=== PATIENT | female | born 2000 | race Caucasian/White ===

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

== ENCOUNTER 2022-01-16 15:18 | Emergency (ER) | payer OTHER ==
[2022-01-16 15:40] VITALS: TEMP 99
[2022-01-16 16:07] LABS: Appearance,Urine Clear (Clear); Bacteria,Urine Occasional /hpf; Bilirubin,Urine Negative (Negative); Blood,Urine Negative (Negative); Color,Urine Yellow; Glucose,Urine (UA) Negative (Negative); Hyaline Casts,Urine 1 /lpf (0-2); Ketones,Urine Trace (Negative); Leukocyte Esterase,Urine Small (Negative); Mucus,Urine Rare /hpf; Nitrite,Urine Negative (Negative); Protein,Urine Negative (Negative); RBC,Urine <1 /hpf (0-5); Specific Gravity,Urine 1.008 (1.001-1.035); Squamous Epithelial Cell,Urine 1 /hpf (0-4); Urobilinogen,Urine <2.0 mg/dL (<2.0); WBC,Urine 3 /hpf (0-5)
[2022-01-16] MEDS ORDERED: SODIUM CHLORIDE 0.9% 1,000 ML IV STA (17:00)
[2022-01-16] MEDS ORDERED: MORPHINE SULFATE 2 MG/ML SYRINGE IVP STA (17:00)
[2022-01-16] MEDS ORDERED: ONDANSETRON 4 MG/2 ML VIAL IVP STA (17:00)
[2022-01-16 17:30] LABS: Basophils # (A) 0.1 k/uL (0-0.2); Basophils % (A) 1 %; Eosinophils # (A) 0.4 k/uL (0-0.7); Eosinophils % (A) 4 %; HCT 42.7 % (34.0-46.0); HGB 14.3 gm/dL (11.4-16.0); Lymphocytes # (A) 2.5 k/uL (1.0-4.8); Lymphocytes % (A) 28 %; MCH 29.3 pg (25.0-35.0); MCHC 33.6 g/dL (31.0-37.0); MCV 87.4 fL (80.0-100.0); Mean Platelet Volume 7.5; Monocytes # (A) 0.8 k/uL (0-1.0); Monocytes % (A) 9 %; Neutrophils # (A) 5.1 k/uL (1.3-7.7); Neutrophils % (A) 57 %; Platelet Count 268 k/uL (150-450); RBC 4.89 m/uL (3.80-5.40); RDW 12.4 % (11.5-15.5)
[2022-01-16 17:42] LABS: ALT 17 U/L (4-34); AST 14 U/L (14-36); African American GFR (CKD) >90 (>60 ml/min/1.73 sqM); Albumin 4.6 g/dL (3.5-5.0); Alkaline Phosphatase 60 U/L (38-126); Anion Gap 9 mmol/L; Blood Urea Nitrogen 10 mg/dL (7-17); Calcium 9.6 mg/dL (8.4-10.2); Carbon Dioxide 20 mmol/L (22-30); Chloride 109 mmol/L (98-107); Glucose 75 mg/dL (74-99); Lipase 41 U/L (23-300); Non-African American GFR(CKD) >90 (>60 ml/min/1.73 sqM); Potassium 3.8 mmol/L (3.5-5.1); Sodium 138 mmol/L (137-145); Total Bilirubin 0.6 mg/dL (0.2-1.3); Total Protein 7.5 g/dL (6.3-8.2)
--- NOTE | 2022-01-16 17:48 | ED ---
General Adult HPI - General Chief complaint: Abdominal Pain Stated complaint: Adb pain/nausea/vomiting Time Seen by Provider: 01/16/22 16:34 Source: patient Mode of arrival: ambulatory Limitations: no limitations - History of Present Illness Initial comments: This 21-year-old female presents emergency Department with right lower quadrant pain 3 days. Patient states she began to have abdominal pain a few days ago and states it localized to right lower quadrant and began to worsen today. Patient states the pain is episodic in nature and seems to come and go, however today it didn't seem to go away. Patient denies taking any medication for the pain. She states moving around or crusting area does worsen the pain. She denies any radiation. She states her pain right now is currently 10/10 but states 3 days ago when it began it was tolerable and was about 2/10. Patient describes the pain as aching in nature. Patient states she did experience nausea throughout the last couple days and did vomit one time today prior to presenting to the emergency department. Patient denies being on her menstrual cycle at this time and states she was on the Depo shot up until a couple months ago where she bled almost daily and states she had an IUD placed on Wednesday, she states her last day of bleeding was 4 days ago. Patient states over the last couple days she has had a little bit of a decreased appetite, however she has still been eating and drinking plenty of fluids. Patient denies any fever, hemoptysis, hematochezia, change in bowel or bladder, headache, lightheadedness, dizziness, chest pain, shortness of breath. - Related Data Home Medications Medication Instructions Recorded Confirmed Cyproheptadine [Cyproheptadine HCl] 4 mg PO DAILY PRN 04/15/21 01/16/22 Ibuprofen [Motrin] 800 mg PO Q8H PRN 04/15/21 01/16/22 clonazePAM [KlonoPIN] 0.25 - 0.5 mg PO DAILY PRN 04/15/21 01/16/22 ondansetron HCL [Zofran] 4 mg PO Q8H PRN 04/15/21 01/16/22 Omeprazole Magnesium [PriLOSEC OTC] 20 mg PO DAILY PRN 01/16/22 01/16/22 buPROPion HCL [buPROPion HCL SR] 400 mg PO DAILY 01/16/22 01/16/22 Allergies Allergy/AdvReac Type Severity Reaction Status Date / Time No Known Allergies Allergy Verified 01/16/22 17:23 Review of Systems ROS Statement: Those systems with pertinent positive or pertinent negative responses have been documented in the HPI. ROS Other: All systems not noted in ROS Statement are negative. Past Medical History Past Medical History: No Reported History Additional Past Medical History / Comment(s): cyclic vomiting syndrome History of Any Multi-Drug Resistant Organisms: None Reported Past Surgical History: No Surgical Hx Reported Past Psychological History: Anxiety, Depression Smoking Status: Never smoker Past Alcohol Use History: Occasional Past Drug Use History: Marijuana General Exam Limitations: no limitations General appearance: alert, in no apparent distress Head exam: Present: atraumatic, normocephalic, normal inspection Eye exam: Present: normal appearance, PERRL, EOMI. Absent: scleral icterus, conjunctival injection, periorbital swelling Pupils: Present: normal accommodation ENT exam: Present: normal exam, mucous membranes moist Neck exam: Present: normal inspection, full ROM. Absent: tenderness, meningismus, lymphadenopathy Respiratory exam: Present: normal lung sounds bilaterally. Absent: respiratory distress, wheezes, rales, rhonchi, stridor, chest wall tenderness Cardiovascular Exam: Present: regular rate, normal rhythm, normal heart sounds. Absent: systolic murmur, diastolic murmur, rubs, gallop, clicks GI/Abdominal exam: Present: soft, tenderness (Right lower quadrant tenderness to palpation), normal bowel sounds. Absent: distended, guarding, rebound, rigid Extremities exam: Present: normal inspection, full ROM, normal capillary refill. Absent: tenderness, pedal edema, joint swelling, calf tenderness Back exam: Present: normal inspection, full ROM. Absent: CVA tenderness (R), CVA tenderness (L), paraspinal tenderness, vertebral tenderness Neurological exam: Present: alert, oriented X3, CN II-XII intact Psychiatric exam: Present: normal affect, normal mood Skin exam: Present: warm, dry, intact, normal color. Absent: rash Course Vital Signs 01/16/22 01/16/22 01/16/22 15:37 18:00 19:39 Temperature 99.0 F Pulse Rate 98 78 86 Respiratory 18 18 16 Rate Blood Pressure 124/71 122/76 121/74 O2 Sat by Pulse 99 99 100 Oximetry Medical Decision Making - Medical Decision Making This 21-year-old female presents emergency Department with episodic right lower quadrant pain 3 days, worsening today. Patient was that blood cells 9.0, hemoglobin 14.3, chemistry with chloride 109 and carbon dioxide 20. Urine trace ketones, small leukocyte esterase and occasional bacteria. Lactic acid 1.3 Urine hCG not detected. 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 No evidence of bowel obstruction. Additional narrowing of the left renal vein also likely secondary to the aorta and superior mesenteric artery can be seen in setting of nutcracker syndrome, correlate with urinalysis for hematuria. Transvaginal ultrasound without any evidence for acute pelvic process. Appropriate color Doppler flow and spectra waveforms to the ovaries. IUD in appropriate position. Multiple small follicles seen on right ovary. Large follicular cyst seen on le ft ovary. Patient sent in stable condition and was instructed to follow up with her primary care provider and CHIEF MECHANICAL ENGINEER in the next 48-72 hours. Patient was given pain and nausea medication in the emergency department and stated it significantly decreased her pain. Prior to discharge patient stated her pain was 0/10 and very dull in nature. I did review all findings with my attending, Dr. Benavides who suggested patient follow up with her primary care provider early next week. Strict return precautions were discussed with patient. Patient verbally agreed to plan and stated she will return if her pain returned or if any new or concerning symptoms arose. Patient sent home in stable condition. C ase discussed in detail with my attending, . - Lab Data Result diagrams: 01/16/22 17:06 01/16/22 17:06 Lab Results 01/16/22 01/16/22 01/16/22 Range/Units 15:54 15:54 17:06 WBC 9.0 (4.0-11.0) k/uL RBC 4.89 (3.80-5.40) m/uL Hgb 14.3 (11.4-16.0) gm/dL Hct 42.7 (34.0-46.0) % MCV 87.4 (80.0-100.0) fL MCH 29.3 (25.0-35.0) pg MCHC 33.6 (31.0-37.0) g/dL RDW 12.4 (11.5-15.5) % Plt Count 268 (150-450) k/uL MPV 7.5 Neutrophils % 57 % Lymphocytes % 28 % Monocytes % 9 % Eosinophils % 4 % Basophils % 1 % Neutrophils # 5.1 (1.3-7.7) k/uL Lymphocytes # 2.5 (1.0-4.8) k/uL Monocytes # 0.8 (0-1.0) k/uL Eosinophils # 0.4 (0-0.7) k/uL Basophils # 0.1 (0-0.2) k/uL Sodium (137-145) mmol/L Potassium (3.5-5.1) mmol/L Chloride (98-107) mmol/L Carbon Dioxide (22-30) mmol/L Anion Gap mmol/L BUN (7-17) mg/dL Creatinine (0.52-1.04) mg/dL Est GFR (CKD-EPI)AfAm (>60 ml/min/1.73 sqM) Est GFR (CKD-EPI)NonAf (>60 ml/min/1.73 sqM) Glucose (74-99) mg/dL Plasma Lactic Acid Jung (0.7-2.0) mmol/L Calcium (8.4-10.2) mg/dL Total Bilirubin (0.2-1.3) mg/dL AST (14-36) U/L ALT (4-34) U/L Alkaline Phosphatase (38-126) U/L Total Protein (6.3-8.2) g/dL Albumin (3.5-5.0) g/dL Lipase (23-300) U/L Urine Color Yellow Urine Appearance Clear (Clear) Urine pH 8.0 (5.0-8.0) Ur Specific [place] 1.008 (1.001-1.035) Urine Protein Negative (Negative) Urine Glucose (UA) Negative (Negative) Urine Ketones Trace H (Negative) Urine Blood Negative (Negative) Urine Nitrite Negative (Negative) Urine Bilirubin Negative (Negative) Urine Urobilinogen <2.0 (<2.0) mg/dL Ur Leukocyte Esterase Small H (Negative) Urine RBC <1 (0-5) /hpf Urine WBC 3 (0-5) /hpf Ur Squamous Epith Cells 1 (0-4) /hpf Urine Bacteria Occasional H (None) /hpf Hyaline Casts 1 (0-2) /lpf Urine Mucus Rare H (None) /hpf Urine HCG, Qual Not Detected (Not Detectd) 01/16/22 01/16/22 Range/Units 17:06 17:06 WBC (4.0-11.0) k/uL RBC (3.80-5.40) m/uL Hgb (11.4-16.0) gm/dL Hct (34.0-46.0) % MCV (80.0-100.0) fL MCH (25.0-35.0) pg MCHC (31.0-37.0) g/dL RDW (11.5-15.5) % Plt Count (150-450) k/uL MPV Neutrophils % % Lymphocytes % % Monocytes % % Eosinophils % % Basophils % % Neutrophils # (1.3-7.7) k/uL Lymphocytes # (1.0-4.8) k/uL Monocytes # (0-1.0) k/uL Eosinophils # (0-0.7) k/uL Basophils # (0-0.2) k/uL Sodium 138 (137-145) mmol/L Potassium 3.8 (3.5-5.1) mmol/L Chloride 109 H (98-107) mmol/L Carbon Dioxide 20 L (22-30) mmol/L Anion Gap 9 mmol/L BUN 10 (7-17) mg/dL Creatinine 0.81 (0.52-1.04) mg/dL Est GFR (CKD-EPI)AfAm >90 (>60 ml/min/1.73 sqM) Est GFR (CKD-EPI)NonAf >90 (>60 ml/min/1.73 sqM) Glucose 75 (74-99) mg/dL Plasma Lactic Acid Jung 1.3 (0.7-2.0) mmol/L Calcium 9.6 (8.4-10.2) mg/dL Total Bilirubin 0.6 (0.2-1.3) mg/dL AST 14 (14-36) U/L ALT 17 (4-34) U/L Alkaline Phosphatase 60 (38-126) U/L Total Protein 7.5 (6.3-8.2) g/dL Albumin 4.6 (3.5-5.0) g/dL Lipase 41 (23-300) U/L Urine Color Urine Appearance (Clear) Urine pH (5.0-8.0) Ur Specific [place] (1.001-1.035) Urine Protein (Negative) Urine Glucose (UA) (Negative) Urine Ketones (Negative) Urine Blood (Negative) Urine Nitrite (Negative) Urine Bilirubin (Negative) Urine Urobilinogen (<2.0) mg/dL Ur Leukocyte Esterase (Negative) Urine RBC (0-5) /hpf Urine WBC (0-5) /hpf Ur Squamous Epith Cells (0-4) /hpf Urine Bacteria (None) /hpf Hyaline Casts (0-2) /lpf Urine Mucus (None) /hpf Urine HCG, Qual (Not Detectd) - Radiology Data Radiology results: report reviewed, image reviewed Disposition Clinical Impression: Right lower quadrant pain Disposition: HOME SELF-CARE Condition: Stable Instructions (If sedation given, give patient instructions): Abdominal Pain (ED) Additional Instructions: Please follow-up with your RESOURCE RO[employer] SPECIAL EDUCATION TEACHER and primary care provider on Wednesday. Return to the emergency department if symptoms return or if any new, worsening, or concerning symptoms arise. Is patient prescribed a controlled substance at d/c from ED?: No Referrals: Sudhir Byrne Jr, DO [Primary Care Provider] - 1-2 days Time of Disposition: 20:00
--- NOTE | 2022-01-16 17:59 | CT ---
EXAMINATION TYPE: CT abdomen pelvis w con CT DLP: 485.6 mGycm, Automated exposure control for dose reduction was used. DATE OF EXAM: 01/16/2022 5:34 PM COMPARISON: CT abdomen pelvis most recent from 04/15/2021 . CLINICAL INDICATION:Female, 21 years old with history of abdominal pain; Abdominal pain, Hx IBS, coli tis, cyclic vomiting syndrome. TECHNIQUE: Standard CT of the abdomen and pelvis without IV or oral contrast. Lack of IV or oral co ntrast limits evaluation of solid and hollow organ viscera. Coronal and sagittal reformats were perfo rmed. FINDINGS: LOWER CHEST: Unremarkable ABDOMEN LIVER: Focal fatty infiltration adjacent to the falciform ligament in segment IVb GALLBLADDER AND BILE DUCTS: Unremarkable. PANCREAS: Unremarkable. SPLEEN: Unremarkable. ADRENAL GLANDS: Unremarkable. KIDNEYS AND URETERS: No evidence of hydronephrosis or renal calculus. The ureters are unremarkable. PELVIS BLADDER: Unremarkable REPRODUCTIVE: Intrauterine device seen within the endometrium. ABDOMEN & PELVIS STOMACH AND BOWEL: There is narrowing of the third portion of the duodenum as it passes between the superior mesenteric artery and aorta. No evidence of bowel obstruction. PERITONEUM: No evidence of pneumoperitoneum or free fluid. VASCULATURE: No evidence of aortic aneurysm. Narrowing of the left renal vein as it passes across the aorta. There is dilated collaterals along the MUSCULOSKELETAL: No acute osseous abnormalities LYMPH NODES: No gross evidence for lymphadenopathy. 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 Additionally narrowing of the left renal ve in also secondary to the aorta and superior mesenteric artery can be seen in setting of nut sifter s yndrome correlate with urinalysis for hematuria.
--- NOTE | 2022-01-16 19:38 | US ---
EXAMINATION TYPE: US transvaginal DATE OF EXAM: 01/16/2022 COMPARISON: CT CLINICAL HISTORY: R/O ovarian torsion. RLQ pain. IUD. TECHNIQUE: TV US. Transvaginal sonographic images were medically necessary to better assess the foll owing anatomy: ovaries Date of LMP: patient stated had year long menstrual cycle, but since new IUD November this year, has not had menstrual cycle. EXAM MEASUREMENTS: Uterus: 7.7 x 4.0 x 2.6 cm Endometrial Stripe: 0.3 cm Right Ovary: 2.5 x 1.2 x 1.7 cm Left Ovary: 3.9 x 2.8 x 2.8 cm 1. Uterus: Anteverted; prominent vein is noted in periphery of uterus 2. Endometrium: IUD is noted within upper and mid endometrium in normal location 3. Right Ovary: multiple small follicles 4. Left Ovary: large follicular cyst with peripheral ring of color flow is seen = 2.3 x 2.2 x 2.0 cm Spectral, color and waveform Doppler imaging shows good arterial and venous flow within the ovaries ; there is no evidence for ovarian torsion. 5. Bilateral Adnexa: wnl 6. Posterior cul-de-sac: wnl IMPRESSION: 1. No evidence for acute pelvic process. 2. Appropriate color Doppler flow and spectral waveforms to the ovaries. 3. IUD in appropriate position.
[2022-01-16 19:41] VITALS: BP 121/74; PULSE 86; RESP 16
== END 2022-01-16 20:13 | disposition home or self-care (01) ==
LOC: EC 15:18
DX: R10.31 Right lower quadrant pain (principal); F32.A Depression, unspecified; F41.9 Anxiety disorder, unspecified; F12.90 Cannabis use, unspecified, uncomplicated; Z79.899 Other long term (current) drug therapy
CPT/HCPCS: 36415; 80053; 83605; 83690; 85025; 81001; 81025; 93975; 76830; 74177; 99284; 96374; 96375; 96361; J2405; J2270; Q9967

== ENCOUNTER → 2022-03-10 | Outpatient (CLI) | payer OTHER ==
--- NOTE | 2022-03-10 15:00 | US ---
EXAMINATION TYPE: US gallbladder DATE OF EXAM: 03/10/2022 COMPARISON: NONE CLINICAL HISTORY: 22-year-old female I87.1COMPRESSION OF VEIN. Intermittent RUQ & right flank pain x 1 month, hematuria TECHNIQUE: Multiple sonographic images of the right upper quadrant are obtained. FINDINGS: EXAM MEASUREMENTS: Liver Length: 15.9 cm Gallbladder Wall: 0.2 cm CBD: 0.2 cm Right Kidney: 9.7 x 3.3 x 4.8 cm Pancreas: wnl Liver: wnl Gallbladder: wnl Evidence for sonographic Irby's sign: no CBD: wnl Right Kidney: wnl IMPRESSION: Unremarkable sonographic examination of the right upper quadrant.
--- NOTE | 2022-03-10 17:07 | CT ---
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 Contrast: None Technique: Axial images 3 mm thick sections. Reconstructed images in the coronal and sagittal plane. Three-D reconstructed images through the collecting systems was performed by the technologist on a [employer] computer. FINDINGS: Limited CT sections are obtained through the lung bases which are clear CT ABDOMEN: Liver and spleen are normal density without discrete masses or cysts. The pancreas is nor mal. Gallbladder is normal. Abdominal aorta and inferior vena cava appear normal. The adrenal glands are normal. Loops of bowel without oral contrast. Unremarkable. Attention is paid to the kidneys. No masses or hydronephrosis are evident. There appears to be symmet rical excretion. Ureters follow a normal caliber course and contour to the urinary bladder no suspici ous compression is evident. Ureters appear to cross over the iliac vessels. No retrocrural vascular u reter is identified. Proximal ureters minimally small kink at the ureteropelvic junction with there a re immediate horizontal course before descending into the urinary bladder. No hydronephrosis however is evident. CT PELVIS: Nonspecific loops of bowel within the pelvis. Urinary bladder with contrast appears normal . Uterus appears normal. IUD is present. IMPRESSION: 1. NO SUSPICIOUS CHANGES TO SUGGEST COMPRESSION OR STENOSIS OF THE URETERS. NO RETROVASCULAR URETERS IDENTIFIED.
== END | disposition home or self-care (01) ==
LOC: RADUSWWP 06:55
PROVIDERS: ATTEND Surgery
DX: I87.1 Compression of vein (principal); R93.89 Abnormal findings on diagnostic imaging of other specified body structures
CPT/HCPCS: 76705; 74178; 74400; Q9967

== ENCOUNTER → 2022-07-20 | Outpatient (CLI) | payer OTHER ==
--- NOTE | 2022-07-20 14:43 | NM ---
EXAMINATION TYPE: NM hepatobiliary w EF DATE OF EXAM: 07/20/2022 COMPARISON: Ultrasound 03/10/2022 HISTORY: 22-year-old female R11.2, nausea and vomiting. TECHNIQUE: After the intravenous administration of 3.9 mCi Tc 99m Mebrofenin hepatobiliary scintigrap hy is performed. Immediate images post injection. FINDINGS: There is satisfactory initial accumulation of tracer by the liver. The gallbladder is visualized wit hin 8 minutes. The small bowel activity is noted within 14 minutes. At one hour 8 ounces of oral en sure plus is given to mimic CCK and gallbladder ejection fraction is calculated at 47 %, in the schuyler l range. Therefore there is no scintigraphic evidence of cystic or common bile duct obstruction to s uggest acute cholecystitis or gallbladder dyskinesia. IMPRESSION: No scintigraphic evidence for acute/chronic cholecystitis or biliary dyskinesia.
== END | disposition home or self-care (01) ==
LOC: RADNMMAIN 07:03
PROVIDERS: ATTEND Family Medicine
DX: R11.2 Nausea with vomiting, unspecified (principal)
CPT/HCPCS: 78226; A9537

== ENCOUNTER → 2022-08-14 | Outpatient (CLI) | payer OTHER ==
--- NOTE | 2022-08-14 13:12 | NM ---
EXAMINATION TYPE: NM gastric emptying static DATE OF EXAM: 08/14/2022 COMPARISON: NONE CLINICAL INDICATION:Female, 22 years old with history of R14.0 abdominal distention; Following administration of 1.8 mCi Tc 99m Sulfur Colloid with 4 ounces egg beaters, 2 pieces of toas t with butter & jelly, 6 ounces water, projection images of the abdomen were obtained 10 minutes post ingestion. Patient Emptying Values 1 Hour 13 % 2 Hours 48 % 3 Hours 71 % 4 Hours 83 % Gastroesophagel reflux: None IMPRESSION: Gastric emptying: Normal Gastroesophageal reflux: None Gastric emptying normal percentage values: 30 minutes: <70% of retention (> 30% emptying) suggests abnormally fast emptying. 60 minutes: <90% retention (>10% emptying) is normal; less than 30% retention (>70% emptying) suggest s abnormally rapid empying. 90 minutes: <65% retention (> 35% emptying) is normal. 120 minutes: <60% retention (> 40% emptying) is normal. 180 minutes: <30% retention (> 70% emptying) is normal. Gastric emptying T-1/2: Solid: The normal range is 60-105 minutes Liquid only: Normal range is 10-45 minutes. Liquid only-children: At 60 minutes, normal range is 44-58 % . Liquid only-infants: At 60 minutes, normal range is 32-64 %. Additional references: Gastric Emptying Scintigraphy [email or web address]://[email or web address]
== END | disposition home or self-care (01) ==
LOC: RADXRMAIN 07:09
PROVIDERS: ATTEND Internal Medicine Gastroenterology
DX: R14.0 Abdominal distension (gaseous) (principal)
CPT/HCPCS: 78264; A9541

== ENCOUNTER 2022-12-28 21:25 | Emergency (ER) | payer OTHER ==
[2022-12-28 21:47] VITALS: RESP 16; TEMP 98.4
[2022-12-28] MEDS ORDERED: METOCLOPRAMIDE 5 MG/ML 2 ML VIAL IVP STA (23:55)
[2022-12-28] MEDS ORDERED: diphenhydrAMINE 50 MG/ML 1 ML VIAL IVP STA (23:55)
[2022-12-28] MEDS ORDERED: KETOROLAC 15 MG/ML 1 ML VIAL IVP STA (23:55)
[2022-12-28] MEDS ORDERED: SODIUM CHLORIDE 0.9% 1,000 ML IV STA (23:55)
[2022-12-29 00:35] LABS: Basophils # (A) 0.1 k/uL (0-0.2); Basophils % (A) 1 %; Eosinophils # (A) 0.2 k/uL (0-0.7); Eosinophils % (A) 2 %; HCT 37.8 % (34.0-46.0); HGB 13.4 gm/dL (11.4-16.0); Hyperchromasia Slight; Lymphocytes # (A) 2.5 k/uL (1.0-4.8); Lymphocytes % (A) 36 %; MCH 29.2 pg (25.0-35.0); MCHC 35.5 g/dL (31.0-37.0); MCV 82.3 fL (80.0-100.0); Mean Platelet Volume 7.5; Monocytes # (A) 0.4 k/uL (0-1.0); Monocytes % (A) 6 %; Neutrophils # (A) 3.6 k/uL (1.3-7.7); Neutrophils % (A) 53 %; Platelet Count 240 k/uL (150-450); RDW 12.8 % (11.5-15.5); WBC 6.9 k/uL (4.0-11.0)
[2022-12-29 01:00] LABS: ALT 25 U/L (4-34); AST 14 U/L (14-36); African American GFR (CKD) >90 (>60 ml/min/1.73 sqM); Albumin 4.4 g/dL (3.5-5.0); Alkaline Phosphatase 52 U/L (38-126); Anion Gap 7 mmol/L; Blood Urea Nitrogen 8 mg/dL (7-17); Calcium 9.1 mg/dL (8.4-10.2); Carbon Dioxide 25 mmol/L (22-30); Chloride 107 mmol/L (98-107); Glucose 82 mg/dL (74-99); Lipase 43 U/L (23-300); Non-African American GFR(CKD) >90 (>60 ml/min/1.73 sqM); Potassium 3.3 mmol/L (3.5-5.1); Sodium 139 mmol/L (137-145); Total Bilirubin 0.9 mg/dL (0.2-1.3)
[2022-12-29 01:02] LABS: Amorphous Sediment,Urine Moderate /hpf; Appearance,Urine Cloudy (Clear); Bacteria,Urine Rare /hpf; Bilirubin,Urine Negative (Negative); Blood,Urine Negative (Negative); Color,Urine Yellow; Glucose,Urine (UA) Negative (Negative); Ketones,Urine Negative (Negative); Leukocyte Esterase,Urine Trace (Negative); Mucus,Urine Many /hpf; Nitrite,Urine Negative (Negative); Protein,Urine Trace (Negative); RBC,Urine 1 /hpf (0-5); Specific Gravity,Urine 1.017 (1.001-1.035); Squamous Epithelial Cell,Urine 2 /hpf (0-4); Urobilinogen,Urine <2.0 mg/dL (<2.0); WBC,Urine 3 /hpf (0-5)
--- NOTE | 2022-12-29 01:33 | CT ---
EXAMINATION TYPE: CT abdomen pelvis w con DATE OF EXAM: 12/29/2022 COMPARISON: 03/10/2022 HISTORY: Abd pain CT DLP: 368.8 mGycm Automated exposure control for dose reduction was used. CONTRAST: Performed with IV Contrast, patient injected with 100 mL of Isovue 300. Images obtained from the diaphragm to the floor of the pelvis with the IV contrast. Lung bases are clear. No pleural effusion. Heart size is normal. No pericardial effusion. Liver splee n pancreas and stomach appear intact. Bile ducts are nondilated. Gallbladder appears normal. There is no adrenal mass. Kidneys show satisfactory contrast opacification. No hydronephrosis. Ureter s are not dilated. Bladder distends smoothly. No inguinal hernia. No free fluid in the pelvis. Uterus is anteverted. There is IUD in the uterine fundus. Lumbar vertebrae have normal spacing and alignment. Posterior elements are intact. Bony pelvis is int act. The hip joints are intact. Appendix appears to be partly visualized posteriorly adjacent to the iliac vessels and not dilated. There is no mesenteric edema. No ascites or free air. No sign of a bowel obstruction. Delayed images show normal renal excretion. There is opacification of the celiac artery and superior mesenteric artery without evidence of stenos is. IMPRESSION: Negative CT scan abdomen and pelvis. No sign of appendicitis.
[2022-12-29] MEDS ORDERED: cefTRIAXone IN SWFI 1,000 MG/10 ML SYRINGE IVP STA (02:14)
--- NOTE | 2022-12-29 02:17 | ED ---
Abdominal Pain HPI - General Chief Complaint: Abdominal Pain Stated Complaint: Abd Pain Time Seen by Provider: 12/28/22 21:50 Source: patient Mode of arrival: ambulatory - History of Present Illness Initial Comments: 22-year-old female with past history of superior mesenteric artery syndrome presents to the emergency department reporting generalized abdominal pain. She does have long-standing history of abdominal pain. Currently undergoing surgery next week at [facility]. Reports that for the past 3 days she has been having worsening abdominal pain. States it is generalized. He has associated nausea with vomiting. No fevers. No chest pain or shortness of breath. Admits to constipation. No black or bloody stools. No vaginal discharge or bleeding. She is sexually active. Does have an IUD. Admits to increased frequency of urination without hematuria. Patient does not have any medications at home. No other alleviating, precipitating or modifying factors - Related Data Home Medications Medication Instructions Recorded Confirmed Cyproheptadine [Cyproheptadine HCl] 4 mg PO DAILY PRN 04/15/21 01/16/22 Ibuprofen [Motrin] 800 mg PO Q8H PRN 04/15/21 01/16/22 clonazePAM [KlonoPIN] 0.25 - 0.5 mg PO DAILY PRN 04/15/21 01/16/22 ondansetron HCL [Zofran] 4 mg PO Q8H PRN 04/15/21 01/16/22 Omeprazole Magnesium [PriLOSEC OTC] 20 mg PO DAILY PRN 01/16/22 01/16/22 buPROPion HCL [buPROPion HCL SR] 400 mg PO DAILY 01/16/22 01/16/22 Previous Rx's Medication Instructions Recorded Cephalexin [Keflex] 500 mg PO BID #14 cap 12/29/22 Allergies Allergy/AdvReac Type Severity Reaction Status Date / Time No Known Allergies Allergy Verified 12/28/22 21:47 Review of Systems ROS Statement: Those systems with pertinent positive or pertinent negative responses have been documented in the HPI. ROS Other: All systems not noted in ROS Statement are negative. Past Medical History Past Medical History: No Reported History Additional Past Medical History / Comment(s): cyclic vomiting syndrome, superior mesenteric artery syndrome History of Any Multi-Drug Resistant Organisms: None Reported Past Surgical History: No Surgical Hx Reported Past Psychological History: Anxiety, Depression Smoking Status: Never smoker Past Alcohol Use History: Occasional Past Drug Use History: Marijuana General Exam General appearance: alert, in no apparent distress Head exam: Present: atraumatic, normocephalic, normal inspection Eye exam: Present: normal appearance, PERRL, EOMI. Absent: scleral icterus, conjunctival injection, periorbital swelling ENT exam: Present: normal exam, mucous membranes moist Neck exam: Present: normal inspection. Absent: tenderness, meningismus, lymphadenopathy Respiratory exam: Present: normal lung sounds bilaterally. Absent: respiratory distress, wheezes, rales, rhonchi, stridor Cardiovascular Exam: Present: regular rate, normal rhythm, normal heart sounds. Absent: systolic murmur, diastolic murmur, rubs, gallop, clicks GI/Abdominal exam: Present: soft, tenderness (generalized), normal bowel sounds. Absent: distended, guarding, rebound, rigid Extremities exam: Present: normal inspection, full ROM, normal capillary refill. Absent: tenderness, pedal edema, joint swelling, calf tenderness Back exam: Present: normal inspection Neurological exam: Present: alert, oriented X3, CN II-XII intact Psychiatric exam: Present: normal affect, normal mood Skin exam: Present: warm, dry, intact, normal color. Absent: rash Course Vital Signs 12/28/22 12/29/22 21:42 02:49 Temperature 98.4 F Pulse Rate 66 89 Respiratory 16 16 Rate Blood Pressure 127/83 118/78 O2 Sat by Pulse 100 98 Oximetry Medical Decision Making - Medical Decision Making Was pt. sent in by a medical professional or institution (, PA, [employer], urgent care, hospital, or longterm...) When possible be specific @ -No Did you speak to anyone other than the patient for history (EMS, parent, family, police, friend...)? What history was obtained from this source @ -No Did you review nursing and triage notes (agree or disagree)? Why? @ -I reviewed and agree with nursing and triage notes Were old charts reviewed (outside hosp., previous admission, EMS record, old EKG, old radiological studies, urgent care reports/EKG's, longterm records)? Report findings @ -Old charts were not reviewed Differential Diagnosis (chest pain, altered mental status, abdominal pain women, abdominal pain men, vaginal bleeding, weakness, fever, dyspnea, syncope, headache, dizziness, GI bleed, back pain, seizure, CVA, palpatations, mental health)? @ -appendicitis, cholecystitis, IBS, IBD, gi bleed EKG interpreted by me (3pts min.). @ -Not done X-rays interpreted by me (1pt min.). @ -Not done CT interpreted by me (1pt min.). @ -Yes U/S interpreted by me (1pt. min.). @ -None done What testing was considered but not performed or refused? (CT, X-rays, U/S, labs)? Why? @ -None What meds were considered but not given or refused? Why? @ -None Did you discuss the management of the patient with other professionals (professionals i.e. , PA, [employer], lab, RT, psych nurse, social group worker, head of physics, teacher, college service officer, rn case management)? Give summary @ -No Was smoking cessation discussed for >3mins.? @ -No Was critical care preformed (if so, how long)? @ -No Were there social determinants of health that impacted care today? How? (Homelessness, low income, unemployed, alcoholism, drug addiction, transportation, low edu. Level, literacy, decrease access to med. care, halfway, rehab)? @ -No Was there de-escalation of care discussed even if they declined (Discuss DNR or withdrawal of care, Hospice)? DNR status @ -No What co-morbidities impacted this encounter? (DM, HTN, Smoking, COPD, CAD, Canc er, CVA, ARF, Chemo, Hep., AIDS, mental health diagnosis, sleep apnea, morbid obesity)? @ -SMA syndrome Was patient admitted / discharged? Hospital course, mention meds given and route, prescriptions, significant lab abnormalities, going to OR and other pertinent info. @ -Upon arrival patient was placed into room 19. A thorough history and physical exam is performed. IV access is established. She is given a dose of Toradol and Zofran for pain and nausea. Laboratory studies are conducted. I did discuss imaging options with the patient. She has had extensive workup for her abdominal pain but she states that her pain feels different. Because of this she is agreeable to CT imaging. Laboratory studies are reviewed and demonstrate a mildly low potassium of 3.3. Urine demonstrates rare bacteria. CT demonstrates no acute process. As the patient does have increased frequency of urination, she will be treated with antibiotics. She is to follow-up with her surgeon for further treatment options and return for any new or worsening symptoms. Patient agreeable to the plan and she was discharged home in stable condition Undiagnosed new problem with uncertain prognosis? @ -No Drug Therapy requiring intensive monitoring for toxicity (Heparin, Nitro, Insulin, Cardizem)? @ -No Were any procedures done? @ -No Diagnosis/symptom? @ -acute exacerbation of chronic abd pain Acute, or Chronic, or Acute on Chronic? @ -acute on chronic Uncomplicated (without systemic symptoms) or Complicated (systemic symptoms)? @ -uncomplicated Side effects of treatment? @ -No Exacerbation, Progression, or Severe Exacerbation? @ -Yes Poses a threat to life or bodily function? How? (Chest pain, [place], [place], pneumonia, PE, COPD, DKA, ARF, appy, cholecystitis, CVA, Diverticulitis, Homicidal, Suicidal, threat to staff... and all critical care pts) @ -No - Lab Data Result diagrams: 12/29/22 00:17 12/29/22 00:17 Lab Results 12/29/22 12/29/22 12/29/22 Range/Units 00:17 00:17 00:17 WBC 6.9 (4.0-11.0) k/uL RBC 4.60 (3.80-5.40) m/uL Hgb 13.4 (11.4-16.0) gm/dL Hct 37.8 (34.0-46.0) % MCV 82.3 (80.0-100.0) fL MCH 29.2 (25.0-35.0) pg MCHC 35.5 (31.0-37.0) g/dL RDW 12.8 (11.5-15.5) % Plt Count 240 (150-450) k/uL MPV 7.5 Neutrophils % 53 % Lymphocytes % 36 % Monocytes % 6 % Eosinophils % 2 % Basophils % 1 % Neutrophils # 3.6 (1.3-7.7) k/uL Lymphocytes # 2.5 (1.0-4.8) k/uL Monocytes # 0.4 (0-1.0) k/uL Eosinophils # 0.2 (0-0.7) k/uL Basophils # 0.1 (0-0.2) k/uL Hyperchromasia Slight Sodium 139 (137-145) mmol/L Potassium 3.3 L (3.5-5.1) mmol/L Chloride 107 (98-107) mmol/L Carbon Dioxide 25 (22-30) mmol/L Anion Gap 7 mmol/L BUN 8 (7-17) mg/dL Creatinine 0.63 (0.52-1.04) mg/dL Est GFR (CKD-EPI)AfAm >90 (>60 ml/min/1.73 sqM) Est GFR (CKD-EPI)NonAf >90 (>60 ml/min/1.73 sqM) Glucose 82 (74-99) mg/dL Plasma Lactic Acid Jung (0.7-2.0) mmol/L Calcium 9.1 (8.4-10.2) mg/dL Total Bilirubin 0.9 (0.2-1.3) mg/dL AST 14 (14-36) U/L ALT 25 (4-34) U/L Alkaline Phosphatase 52 (38-126) U/L Total Protein 7.0 (6.3-8.2) g/dL Albumin 4.4 (3.5-5.0) g/dL Lipase 43 (23-300) U/L Urine Color Yellow Urine Appearance Cloudy H (Clear) Urine pH 7.0 (5.0-8.0) Ur Specific Lamont 1.017 (1.001-1.035) Urine Protein Trace H (Negative) Urine Glucose (UA) Negative (Negative) Urine Ketones Negative (Negative) Urine Blood Negative (Negative) Urine Nitrite Negative (Negative) Urine Bilirubin Negative (Negative) Urine Urobilinogen <2.0 (<2.0) mg/dL Ur Leukocyte Esterase Trace H (Negative) Urine RBC 1 (0-5) /hpf Urine WBC 3 (0-5) /hpf Ur Squamous Epith Cells 2 (0-4) /hpf Amorphous Sediment Moderate H (None) /hpf Urine Bacteria Rare H (None) /hpf Urine Mucus Many H (None) /hpf Urine HCG, Qual (Not Detectd) 12/29/22 12/29/22 Range/Units 00:17 00:17 WBC (4.0-11.0) k/uL RBC (3.80-5.40) m/uL Hgb (11.4-16.0) gm/dL Hct (34.0-46.0) % MCV (80.0-100.0) fL MCH (25.0-35.0) pg MCHC (31.0-37.0) g/dL RDW (11.5-15.5) % Plt Count (150-450) k/uL MPV Neutrophils % % Lymphocytes % % Monocytes % % Eosinophils % % Basophils % % Neutrophils # (1.3-7.7) k/uL Lymphocytes # (1.0-4.8) k/uL Monocytes # (0-1.0) k/uL Eosinophils # (0-0.7) k/uL Basophils # (0-0.2) k/uL Hyperchromasia Sodium (137-145) mmol/L Potassium (3.5-5.1) mmol/L Chloride (98-107) mmol/L Carbon Dioxide (22-30) mmol/L Anion Gap mmol/L BUN (7-17) mg/dL Creatinine (0.52-1.04) mg/dL Est GFR (CKD-EPI)AfAm (>60 ml/min/1.73 sqM) Est GFR (CKD-EPI)NonAf (>60 ml/min/1.73 sqM) Glucose (74-99) mg/dL Plasma Lactic Acid Jung 1.2 (0.7-2.0) mmol/L Calcium (8.4-10.2) mg/dL Total Bilirubin (0.2-1.3) mg/dL AST (14-36) U/L ALT (4-34) U/L Alkaline Phosphatase (38-126) U/L Total Protein (6.3-8.2) g/dL Albumin (3.5-5.0) g/dL Lipase (23-300) U/L Urine Color Urine Appearance (Clear) Urine pH (5.0-8.0) Ur Specific Lamont (1.001-1.035) Urine Protein (Negative) Urine Glucose (UA) (Negative) Urine Ketones (Negative) Urine Blood (Negative) Urine Nitrite (Negative) Urine Bilirubin (Negative) Urine Urobilinogen (<2.0) mg/dL Ur Leukocyte Esterase (Negative) Urine RBC (0-5) /hpf Urine WBC (0-5) /hpf Ur Squamous Epith Cells (0-4) /hpf Amorphous Sediment (None) /hpf Urine Bacteria (None) /hpf Urine Mucus (None) /hpf Urine HCG, Qual Not Detected (Not Detectd) Disposition Clinical Impression: Abdominal pain, UTI (urinary tract infection) Disposition: HOME SELF-CARE Condition: Stable Instructions (If sedation given, give patient instructions): Abdominal Pain (ED) Additional Instructions: Take antibiotics as directed. Follow-up with your doctor for anticipated surg esdras. Return for any new or worsening symptoms Prescriptions: Cephalexin [Keflex] 500 mg PO BID #14 cap Is patient prescribed a controlled substance at d/c from ED?: No Referrals: Sudhir Byrne Jr, DO [Primary Care Provider] - 1-2 days Time of Disposition: 02:17
[2022-12-29 02:49] VITALS: BP 118/78; PULSE 89
== END 2022-12-29 02:50 | disposition home or self-care (01) ==
LOC: EC 21:25
DX: R10.84 Generalized abdominal pain (principal); N39.0 Urinary tract infection, site not specified; F32.A Depression, unspecified; F41.9 Anxiety disorder, unspecified; F12.90 Cannabis use, unspecified, uncomplicated
CPT/HCPCS: 36415; 80053; 83605; 83690; 85025; 81001; 81025; 74177; 99284; 96374; 96375 ×3; J1200; J2765; J0696; J1885; Q9967